=== PATIENT | female | born 1980 | race Caucasian/White ===

== ENCOUNTER 2022-07-10 15:50 | Inpatient (IN) | payer OTHER ==
[2022-07-10] MEDS ORDERED: DIPH,PERTUS(ACELL)TETVAC-LF 0.5 ML VIAL IM ONE (16:09)
--- NOTE | 2022-07-10 16:09 | ED ---
General Adult HPI - General Source: patient, RN notes reviewed Mode of arrival: ambulatory Limitations: no limitations <Garry Meza - Last Filed: 07/10/22 16:08> - General Source: patient, RN notes reviewed Mode of arrival: ambulatory Limitations: no limitations <Carlotta Gates - Last Filed: 07/13/22 17:29> - General Stated complaint: cat bite lt hand, infection Time Seen by Provider: 07/10/22 16:08 - History of Present Illness Initial comments: 42-year-old female presents to the emergency Department with chief complaint of left hand Bite. Patient states she was bit by her cat yesterday. Patient states that she is unsure when her last tetanus was. Patient states she merely had some swelling which is greatly worsened and she has red streaking up her left arm. Patient states she was seen at urgent care sent here for further evaluation. (Garry Meza) 42-year-old female presents to the emergency department for evaluation of left hand redness and swelling status post cat bite yesterday. Patient states she was bit on her index finger then developed significant swelling today. Was seen at urgent care prior to arrival and was sent to the emergency department. Cleansed wound at home and had her arm elevated. Uncertain of last tetanus shot. Denies fever, chills, loss of sensation, significant discomfort, or nausea and vomiting. (Carlotta Gates) - Related Data Previous Rx's Medication Instructions Recorded Acetaminophen Tab [Tylenol] 650 mg PO Q6HR PRN #30 tab 07/11/22 Clindamycin [Cleocin] 300 mg PO Q8H #42 cap 07/11/22 Ibuprofen [Motrin] 400 mg PO Q6HR PRN #30 tab 07/11/22 Levofloxacin [Levaquin] 750 mg PO DAILY 1 Days #14 tab 07/11/22 Lindane [Lindane Shampoo] 60 ml TOPICAL ONCE #60 ml 07/11/22 Allergies Allergy/AdvReac Type Severity Reaction Status Date / Time Penicillins Allergy Rash/Hives Verified 07/11/22 08:08 Review of Systems ROS Other: All systems not noted in ROS Statement are negative. <Garry Meza - Last Filed: 07/10/22 16:08> ROS Other: All systems not noted in ROS Statement are negative. <Carlotta Gates - Last Filed: 07/13/22 17:29> ROS Statement: Those systems with pertinent positive or pertinent negative responses have been documented in the HPI. General Exam Limitations: no limitations General appearance: alert, in no apparent distress Respiratory exam: Present: normal lung sounds bilaterally. Absent: respiratory distress, wheezes, rales, rhonchi, stridor Cardiovascular Exam: Present: regular rate, normal rhythm, normal heart sounds. Absent: systolic murmur, diastolic murmur, rubs, gallop, clicks Right Upper Arm exam: Present: normal inspection, full ROM Elbow exam: Present: normal inspection, full ROM Forearm Wrist exam: Present: full ROM, erythema (streaking along forearm). Absent: tenderness, swelling Hand Wrist exam: Present: tenderness (minimal discomfort), swelling, erythema (+warmth; dorsal surface of left erythematous and swollen. 1.5 cm superficial laceration associated with cat bite on the dorsal surface, middle phalanx, second digit. Second digit with increased swelling and erythema. Distal sensation intact. Range of motion slightly limited by pain.) Vascular: Present: normal capillary refill, radial pulse. Absent: vascular compromise, Pallo Neurological exam: Present: alert, oriented X3, CN II-XII intact Psychiatric exam: Present: normal affect, normal mood <Carlotta Gates - Last Filed: 07/13/22 17:29> Course <Carlotta Gates - Last Filed: 07/13/22 17:29> Vital Signs 07/10/22 07/10/22 07/11/22 16:07 20:32 01:15 Temperature 97.9 F 98.2 F 98.1 F Pulse Rate 90 79 86 Respiratory 18 18 18 Rate Blood Pressure 127/88 133/79 121/80 O2 Sat by Pulse 97 100 98 Oximetry 07/11/22 07/11/22 07/11/22 06:55 10:28 13:00 Temperature 97.6 F 97.9 F Pulse Rate 83 87 78 Respiratory 18 16 16 Rate Blood Pressure 125/69 137/84 132/82 O2 Sat by Pulse 100 98 Oximetry - Reevaluation(s) Reevaluation #1: 07/10/22 21:[address] Farrell who agrees to accept this admission. (Carlotta Gates) Medical Decision Making - Lab Data Result diagrams: 07/11/22 05:59 07/11/22 05:59 - Radiology Data Radiology results: report reviewed, image reviewed <Carlotta Gates - Last Filed: 07/13/22 17:29> - Medical Decision Making This is a pleasant 42-year-old female with no significant past medical history who presents to the emergency department for evaluation of swelling and erythema to the left hand after having been bit by her domestic cat yesterday. Upon exam, patient is well-appearing and in no acute distress. Vital signs are stable. Tetanus shot given. There is significant erythema extending from the second digit to the dorsal surface of the left hand with red streaking into the forearm. Laboratory studies are obtained showing mild leukocytosis and elevated CRP. Patient will be admitted for cellulitis secondary to mammalian bite. Given vancomycin in the emergency department. This patient's care was discussed with my attending, Dr. Mast. Was pt. sent in by a medical professional or institution? @ -Urgent care Did you speak to anyone other than the patient for history? @ -No Did you review nursing and triage notes? @ -Yes, agree Were old charts reviewed? @ -No Differential Diagnosis? @ -Animal bite with infection, cellulitis, laceration, left hand injury, this is not meant to be an exhaustive list. EKG interpreted by me (3pts min.)? @ -Not applicable X-rays interpreted by me (1pt min.)? @ -X-ray as interpreted by me shows no acute findings aside from soft tissue swelling. CT interpreted by me (1pt min.)? @ -Not applicable U/S interpreted by me (1pt. min.)? @ -Not applicable What testing was considered but not performed? (CT, X-rays, U/S, labs)? Why? @ -Given that patient's cat is an indoor pet, no Rabies treatment was necessary. What meds were considered but not given? Why? @ -Patient does have a penicillin ALLERGY therefore this drug class was avoided. Did you discuss the management of the patient with other professionals? @ -I spoke with hospitalist who agreed to accept this admission. Did you reconcile home meds? @ -No Was smoking cessation discussed for >3mins.? @ -No Was critical care preformed (if so, how long)? @ -No Were there social determinants of health that impacted care today? How? (Homelessness, low income, unemployed, alcoholism, drug addiction, transportation, low edu. Level, literacy, decrease access to med. care, fci, rehab)? @ -No Was there de-escalation of care discussed even if they declined? (Discuss DNR or withdrawal of care, Hospice)? @ -No What co-morbidities impacted this encounter? (DM, HTN, Smoking, COPD, CAD, Cancer, CVA, Hep., AIDS, mental health diagnosis, sleep apnea, morbid obesity)? @ -None Was patient admitted / discharged? @ -Admitted Undiagnosed new problem with uncertain prognosis? @ -None Drug Therapy requiring intensive monitoring for toxicity (Heparin, Nitro, Insulin, Cardizem)? @ -None Were any procedures done? @ -None Diagnosis/symptom? @ -Cellulitis of left hand secondary to cat bite Acute, or Chronic, or Acute on Chronic? @ -Acute Uncomplicated (without systemic symptoms) or Complicated (systemic symptoms)? @ -Uncomplicated Side effects of treatment? @ -There is some increased risk of C. diff associated with clindamycin. However this is necessary as patient does have a penicillin ALLERGY which limits treatment options. Exacerbation, Progression, or Severe Exacerbation] @ -No Poses a threat to life or bodily function? @ -No (Carlotta Gates) - Lab Data Lab Results 07/10/22 07/10/22 07/10/22 Range/Units 16:08 16:08 16:08 WBC 12.2 H (3.8-10.6) k/uL RBC 4.83 (3.80-5.40) m/uL Hgb 14.7 (11.4-16.0) gm/dL Hct 42.7 (34.0-46.0) % MCV 88.3 (80.0-100.0) fL MCH 30.4 (25.0-35.0) pg MCHC 34.5 (31.0-37.0) g/dL RDW 12.6 (11.5-15.5) % Plt Count 282 (150-450) k/uL MPV 7.8 Neutrophils % 82 % Lymphocytes % 10 % Monocytes % 4 % Eosinophils % 2 % Basophils % 1 % Neutrophils # 10.0 H (1.3-7.7) k/uL Lymphocytes # 1.2 (1.0-4.8) k/uL Monocytes # 0.5 (0-1.0) k/uL Eosinophils # 0.2 (0-0.7) k/uL Basophils # 0.1 (0-0.2) k/uL Sodium 138 (137-145) mmol/L Potassium 3.8 (3.5-5.1) mmol/L Chloride 109 H (98-107) mmol/L Carbon Dioxide 22 (22-30) mmol/L Anion Gap 7 mmol/L BUN 7 (7-17) mg/dL Creatinine 0.62 (0.52-1.04) mg/dL Est GFR (CKD-EPI)AfAm >90 (>60 ml/min/1.73 sqM) Est GFR (CKD-EPI)NonAf >90 (>60 ml/min/1.73 sqM) Glucose 90 (74-99) mg/dL Plasma Lactic Acid Jayesh 0.8 (0.7-2.0) mmol/L Calcium 8.6 (8.4-10.2) mg/dL Total Bilirubin 0.5 (0.2-1.3) mg/dL AST 23 (14-36) U/L ALT 24 (4-34) U/L Alkaline Phosphatase 99 (38-126) U/L C-Reactive Protein 5.1 H (<1.0) mg/dL Total Protein 7.5 (6.3-8.2) g/dL Albumin 4.2 (3.5-5.0) g/dL - Radiology Data Interpreted by me: Primary interpretation of x-ray of the left hand, there is no evidence of acute osseous deformity or foreign body. (Carlotta Gates) X-ray of the left hand was obtained. Report was reviewed in its entirety. Impression is #1. No acute osseous pathology. #2. Soft tissue edema of the brandt nd. No radiopaque foreign body. (Carlotta Gates) Disposition <Garry Meza - Last Filed: 07/10/22 16:08> Is patient prescribed a controlled substance at d/c from ED?: No Decision Date: 07/10/22 Decision Time: 21:52 <Carlotta Gates - Last Filed: 07/13/22 17:29> Clinical Impression: Cellulitis of left hand, Cat bite Disposition: ADMITTED IP TO THIS HOSP Condition: Stable
--- NOTE | 2022-07-10 16:23 | XR ---
EXAMINATION TYPE: XR hand complete LT DATE OF EXAM: 07/10/2022 4:18 PM INDICATION: Patient age:Female; 42 years old; Reason for study: cat bite; PHH. COMPARISON: None TECHNIQUE: Frontal, lateral and oblique views of the left hand were obtained. FINDINGS: Normal alignment of the visualized joints. No acute osseous pathology is identified. Diffu se soft tissue edema of the hand. No subcutaneous gas. No radiopaque foreign body. No osseous erosion s. IMPRESSION: 1. No acute osseous pathology. 2. Diffuse soft tissue edema of the hand. No radiopaque foreign body.
[2022-07-10 17:18] LABS: Basophils # (A) 0.1 k/uL (0-0.2); Basophils % (A) 1 %; Eosinophils # (A) 0.2 k/uL (0-0.7); Eosinophils % (A) 2 %; HCT 42.7 % (34.0-46.0); HGB 14.7 gm/dL (11.4-16.0); Lymphocytes # (A) 1.2 k/uL (1.0-4.8); Lymphocytes % (A) 10 %; MCH 30.4 pg (25.0-35.0); MCHC 34.5 g/dL (31.0-37.0); MCV 88.3 fL (80.0-100.0); Mean Platelet Volume 7.8; Monocytes # (A) 0.5 k/uL (0-1.0); Monocytes % (A) 4 %; Neutrophils % (A) 82 %; Platelet Count 282 k/uL (150-450); RBC 4.83 m/uL (3.80-5.40); RDW 12.6 % (11.5-15.5); WBC 12.2 k/uL (3.8-10.6)
[2022-07-10 17:36] LABS: ALT 24 U/L (4-34); AST 23 U/L (14-36); African American GFR (CKD) >90 (>60 ml/min/1.73 sqM); Albumin 4.2 g/dL (3.5-5.0); Alkaline Phosphatase 99 U/L (38-126); Anion Gap 7 mmol/L; Blood Urea Nitrogen 7 mg/dL (7-17); C Reactive Protein 5.1 mg/dL (<1.0); Calcium 8.6 mg/dL (8.4-10.2); Carbon Dioxide 22 mmol/L (22-30); Chloride 109 mmol/L (98-107); Glucose 90 mg/dL (74-99); Non-African American GFR(CKD) >90 (>60 ml/min/1.73 sqM); Potassium 3.8 mmol/L (3.5-5.1); Sodium 138 mmol/L (137-145); Total Bilirubin 0.5 mg/dL (0.2-1.3); Total Protein 7.5 g/dL (6.3-8.2)
[2022-07-10] MEDS ORDERED: CLINDAMYCIN 600 MG in DEXTROSE 5% IN WATER 50 ML IVPB STA ×2 (20:52)
[2022-07-10] MEDS ORDERED: LEVOFLOXACIN 500MG-D5W PMX 500 MG in DEXTROSE/WATER 1 100ML.BAG IVPB STA (21:58)
[2022-07-10] MEDS ORDERED: ONDANSETRON 4 MG/2 ML VIAL IVP PRN (21:59)
[2022-07-10] MEDS ORDERED: HYDROcodone/APAP 5-325MG 1 EACH TAB PO PRN (21:59)
[2022-07-10] MEDS ORDERED: ACETAMINOPHEN TAB 325 MG TAB PO PRN (21:59)
[2022-07-10] MEDS ORDERED: ALPRAZolam 0.25 MG TAB PO PRN (21:59)
[2022-07-10] MEDS ORDERED: IBUPROFEN 400 MG TAB PO PRN (21:59)
[2022-07-10] MEDS ORDERED: NALOXONE 0.4 MG/ML 1 ML VIAL IV PRN (21:59)
[2022-07-10] MEDS ORDERED: LEVOFLOXACIN 500MG-D5W PMX 500 MG in DEXTROSE/WATER 1 100ML.BAG IVPB ONE (22:17)
[2022-07-11] MEDS ORDERED: SODIUM CHLORIDE 0.9% 1,000 ML IV SCH (00:30)
--- NOTE | 2022-07-11 00:30 | P.HPIM ---
History of Present Illness H&P Date: 07/10/22 The patient is a 42-year-old female with no known PMH who presents to the emergency room with complaints of left hand and arm pain after a cat bite. The patient reports that her pet cat bit her on her left index finger yesterday. She initially had mild swelling in the area which gradually worsened and today she noticed that the swelling and redness have expanded to involve her arm. She went to the urgent care earlier today from where she was sent to the emergency room. The patient does not know when she had her last tetanus shot. She reports mild pressure-like discomfort in her left hand extending up to her elbow. He reports that her pain is somewhat improved since arrival at the emerg ency room. Denied experiencing fever, chills, chest pain, shortness of breath, nausea, vomiting. Upon presentation to the emergency room, the patient's vital signs were unremarkable. Hand x-ray had revealed diffuse soft tissue edema of the left hand with no foreign body or osseous abnormalities noted. Laboratory evaluation was remarkable for leukocytosis of 12.2 with CRP elevated at 5.1. Review of systems: Pertinent positives and negatives as discussed in HPI, a complete review of systems was performed and all other systems are negative. Physical examination: General: non toxic, no distress, appears at stated age, normal weight Derm: Left index finger puncture 1.5 cm wound noted with surrounding erythema and swelling involving the left hand with erythema tracking up the left arm to e lbow, no fluctuance noted Head: atraumatic, normocephalic, symmetric Eyes: EOMI, no lid lag, anicteric sclera, pupils equal round reactive to light ENT: Nose and ears atraumatic Neck: No cervical lymphadenopathy, trachea midline, supple Mouth: no lip lesion, mucus membranes moist Cardiovascular: S1S2 reg, no murmur, positive dorsalis pedis pulse bilateral, no edema Lungs: CTA bilateral, no rhonchi, no rales, no accessory muscle use Abdominal: soft, nontender to palpation, no guarding Ext: muscle strength 5 out of 5 in all 4 extremities grossly, no gross muscle atrophy, no contractures, Neuro: CN II-XI grossly intact, no gross focal neuro deficits Psych: Alert, oriented, appropriate affect Assessment/plan Sepsis secondary to left hand cellulitis with accompanying lymphangitis followin g cat bite -Continue with clindamycin -Follow up cultures -Pain control -IVFs DVT prophylaxis -Heparin subq The patient is admitted with an anticipated greater than 2 midnight stay for evaluation of cellulitis CODE STATUS: Full Code Discussed with: Patient Anticipated discharge date: 2-[address]: Home Past Medical History Past Medical History: No Reported History Past Surgical History: Tonsillectomy Additional Past Surgical History / Comment(s): c section x 3, Past Psychological History: Anxiety, Depression Smoking Status: Never smoker Past Alcohol Use History: None Reported Past Drug Use History: None Reported Medications and Allergies Allergies Allergy/AdvReac Type Severity Reaction Status Date / Time Penicillins Allergy Rash/Hives Verified 07/10/22 16:11 Physical Exam Vitals: Vital Signs Temp Pulse Resp BP Pulse Ox 07/10/22 20:32 98.2 F 79 18 133/79 100 07/10/22 16:07 97.9 F 90 18 127/88 97 Intake and Output 07/10/22 07/10/22 07/11/22 14:59 22:59 06:59 Other: Weight 138.346 kg Results CBC & Chem 7: 07/10/22 16:08 07/10/22 16:08 Labs: Abnormal Lab Results - Last 24 Hours (Table) 07/10/22 07/10/22 Range/Units 16:08 16:08 WBC 12.2 H (3.8-10.6) k/uL Neutrophils # 10.0 H (1.3-7.7) k/uL Chloride 109 H (98-107) mmol/L C-Reactive Protein 5.1 H (<1.0) mg/dL
[2022-07-11 06:31] LABS: Basophils # (A) 0.1 k/uL (0-0.2); Basophils % (A) 1 %; Eosinophils # (A) 0.3 k/uL (0-0.7); Eosinophils % (A) 3 %; HCT 39.6 % (34.0-46.0); HGB 13.1 gm/dL (11.4-16.0); Lymphocytes # (A) 1.8 k/uL (1.0-4.8); Lymphocytes % (A) 19 %; MCH 29.4 pg (25.0-35.0); MCV 89.2 fL (80.0-100.0); Mean Platelet Volume 7.4; Monocytes # (A) 0.7 k/uL (0-1.0); Monocytes % (A) 7 %; Neutrophils # (A) 6.5 k/uL (1.3-7.7); Neutrophils % (A) 68 %; Platelet Count 292 k/uL (150-450); RBC 4.44 m/uL (3.80-5.40); RDW 12.1 % (11.5-15.5); WBC 9.5 k/uL (3.8-10.6)
[2022-07-11 06:32] LABS: African American GFR (CKD) >90 (>60 ml/min/1.73 sqM); Anion Gap 6 mmol/L; Blood Urea Nitrogen 9 mg/dL (7-17); Carbon Dioxide 24 mmol/L (22-30); Chloride 107 mmol/L (98-107); Glucose 114 mg/dL (74-99); Non-African American GFR(CKD) >90 (>60 ml/min/1.73 sqM); Potassium 3.6 mmol/L (3.5-5.1); Sodium 137 mmol/L (137-145)
[2022-07-11] MEDS ORDERED: HEPARIN SODIUM,PORCINE/PF 5,000 UNIT/0.5 ML SYRINGE SQ SCH (08:00)
[2022-07-11] MEDS ORDERED: FAMOTIDINE 20 MG TAB PO SCH (09:00)
[2022-07-11] MEDS ORDERED: CLINDAMYCIN 600 MG in DEXTROSE 5% IN WATER 50 ML IVPB SCH ×2 (10:00)
[2022-07-11 10:29] VITALS: RESP 16
[2022-07-11 13:35] VITALS: BP 132/82; PULSE 78; TEMP 97.9
--- NOTE | 2022-07-11 13:50 | P.DS ---
Providers Date of admission: 07/10/22 22:03 Expected date of discharge: 07/11/22 Attending physician: Harley Farrell MD Primary care physician: Stated None Hospital Course: Discharge Diagnosis: Sepsis secondary to left hand cellulitis Lymphangitis Animal bite Head lice Hospital Course: 42-year-old female with no significant past medical history presenting with left hand and arm pain after a cat bite. Patient was bitten by her pet cat on the left index finger yesterday, and started to notice swelling around that area which gradually worsened and extended up to her arm. She is unsure about her last admission. Patient was found to have a leukocytosis of 12.2, heart rate up to 90. Patient started on IV clindamycin. She has significant improvement on IV clindamycin. Patient to be discharged on 14 day course of oral clindamycin and levofloxacin. She received a tetanus shot during this hospitalization. She will also be getting a medicated shampoo for head lice. Patient seen and examined at bedside. Vital signs reviewed and stable. General: nontoxic, no distress, appears at stated age Derm: warm, dry, findings as noted below Head: atraumatic, normocephalic, symmetric Eyes: EOMI, no lid lag, anicteric sclera Mouth: no lip lesion, mucus membranes moist Cardiovascular: S1S2 reg, no murmur Lungs: CTA bilateral, no rhonchi, no rales , no accessory muscle use Abdominal: soft, nontender to palpation, no guarding, no appreciable organomegaly Ext: no gross muscle atrophy, no contractures, left hand edema extending up to the wrist, no significant erythema, left index finger bite merary without any drainage. Neuro: CN II-XI grossly intact, no focal neuro deficits Psych: Alert, oriented, appropriate affect A total of 38 minutes of time were spent preparing this complex discharge summary. Patient was discharged on 07/11/22 at 12:29. Patient Condition at Discharge: Stable Plan - Discharge Summary New Discharge Prescriptions: New Clindamycin [Cleocin] 300 mg PO Q8H #42 cap Levofloxacin [Levaquin] 750 mg PO DAILY 1 Days #14 tab Ibuprofen [Motrin] 400 mg PO Q6HR PRN #30 tab PRN Reason: Mild Pain Or Fever > 100.5 Acetaminophen Tab [Tylenol] 650 mg PO Q6HR PRN #30 tab PRN Reason: Mild Pain Or Fever > 100.5 Lindane [Lindane Shampoo] 60 ml TOPICAL ONCE #60 ml Discharge Medication List Acetaminophen Tab [Tylenol] 650 mg PO Q6HR PRN #30 tab 07/11/22 [Rx] Clindamycin [Cleocin] 300 mg PO Q8H #42 cap 07/11/22 [Rx] Ibuprofen [Motrin] 400 mg PO Q6HR PRN #30 tab 07/11/22 [Rx] Levofloxacin [Levaquin] 750 mg PO DAILY 1 Days #14 tab 07/11/22 [Rx] Lindane [Lindane Shampoo] 60 ml TOPICAL ONCE #60 ml 07/11/22 [Rx] Follow up Appointment(s)/Referral(s): None,Stated [Primary Care Provider] - 1-2 days Patient Instructions/Handouts: Animal Bite (DC), Lymphangitis (DC) Activity/Diet/Wound Care/Special Instructions: Please see your PCP in 1-2 days. Discharge Disposition: HOME SELF-CARE
== END 2022-07-11 13:36 | disposition home or self-care (01) | DRG 605 ==
LOC: EC 15:50 → 5NMEDONC 22:03
PROVIDERS: ADMIT Internal Medicine; ATTEND Internal Medicine
PROC: 3E0234Z Introduction of Serum, Toxoid and Vaccine into Muscle, Percutaneous Approach (ICD-10-PCS; principal; 2022-07-10)
DX: S61.452A Open bite of left hand, initial encounter (principal); B85.0 Pediculosis due to Pediculus humanus capitis; R79.82 Elevated C-reactive protein (CRP); S61.251A Open bite of left index finger without damage to nail, initial encounter; R60.0 Localized edema; I89.1 Lymphangitis; W55.01XA Bitten by cat, initial encounter; Z23 Encounter for immunization; Z88.0 Allergy status to penicillin; Z28.310 Unvaccinated for COVID-19
CPT/HCPCS: 36415; 80048; 80053; 83605; 85025; 86140; 87040; 90471; 90715; 96365; 96366; 99285